=== PATIENT | female | born 1960 | race African-American/Black ===

== ENCOUNTER 2020-06-23 13:20 | Emergency (ER) | payer MEDICARE, MEDICAID ==
[~2020-06-23] VITALS: Ht 175.3 cm; Wt 110.0 kg
--- NOTE | 2020-06-23 14:12 | NUR ---
[employer]: PT TO ROOM FROM LOBBY VIA WHEELCHAIR FOR PT COMFORT WITH OUTREACH CLINICIAN. PRIMARY RN KALLI AT BEDSIDE
--- NOTE | 2020-06-23 14:48 | NUR ---
pt in bed, vss, pt stated she has pain in left leg, and she bite her tounge
--- NOTE | 2020-06-23 16:01 | NUR ---
Pt provided water to drink and socks per request. When this RN entered pt's room to deliver water to her this RN discovered urine on the floor of pt's room. This RN asked pt if she urinated on the floor. Pt states "Yeah I did. I didn't know where the bathroom was, I looked out in the hallway. I just decided to go here." Pt advised that the bathroom is directly across the [address] from her room and that if she feels she needs assistance to get there staff would be happy to help her. Pt reports "I can walk I just didn't know where it was." Pt again advised of the location of the bathroom and educated on need to void into the toilet. Floor cleaned. After floor was clean pt requested additional water. Pt provided additional water.
--- NOTE | 2020-06-23 16:06 | NUR ---
This RN alerted that pt is in her room screaming that she wants to leave.
--- NOTE | 2020-06-23 16:08 | NUR ---
This RN entered pt room. Pt putting on her boots. This RN asked pt if I could help her. Pt states "I need a bandaid for my finger and some more water. I'm ready to go." This RN advised pt that results of her ultrasound are not back yet. Pt states "I'll stay a few more minutes and wait for the doctor." Pt advised that the doctor is waiting for the ultrasound results and then they will be back in to speak with the pt.
--- NOTE | 2020-06-23 16:30 | NUR ---
Dr. Hairston at bedside to discuss POC with pt.
[2020-06-23 17:00] VITALS: BP 128/72
== END 2020-06-23 17:07 | disposition home or self-care (01) ==
LOC: ED 16:40
DX: L03.115 Cellulitis of right lower limb (principal); M79.651 Pain in right thigh; M79.89 Other specified soft tissue disorders; I10 Essential (primary) hypertension; E11.9 Type 2 diabetes mellitus without complications
CPT/HCPCS: 99284